=== PATIENT | female | born 1975 | race Caucasian/White ===

== ENCOUNTER 2018-04-12 06:03 | Day surgery (SDC) | payer OTHER ==
[2018-04-08 17:02] VITALS: BMI 28.3
[2018-04-12] MEDS ORDERED: CEFAZOLIN 2 GM in DEXTROSE 5%-WATER - 100 ML IVPB ONE (07:30)
[2018-04-12] MEDS ORDERED: INDOCYANINE GREEN 25 MG/10 ML VIAL IVPUSH ONE (07:39)
[2018-04-12] MEDS ORDERED: LIDOCAINE HCL/PF 2% SDV 5ML VIAL ONE (08:01)
[2018-04-12] MEDS ORDERED: ROCURONIUM BROMIDE 50 MG/5 ML VIAL ONE (08:01)
[2018-04-12] MEDS ORDERED: fentaNYL CITRATE 250 MCG/5 ML VIAL ONE (08:01)
[2018-04-12] MEDS ORDERED: PROPOFOL 20 ML ONE ×2 (08:01)
[2018-04-12] MEDS ORDERED: ceFAZolin SODIUM 1 GM VIAL ONE ×3 (08:01→16:57)
[2018-04-12] MEDS ORDERED: MIDAZOLAM HCL 2 MG/2 ML SINGLE DOSE VIAL ONE (08:02)
--- NOTE | 2018-04-12 08:47 | HP ---
Admitting History and Physical - Admission Chief Complaint: Persistent abnormal Paps History of Present Illness: Pt with h/o breast ca, prior BSO. Persistent abnormal paps and HR HPV positive. H/o LEEP x 3. Unable to have satisfactory colposcopy. Most recent pap LSIL, HR HPV positive. Stenotic cervix on exam. History Source: Patient Limitations to Obtaining History: No Limitations - Past Medical History ...LMP: 02/11/18 ...LMP Comment: bilateral salpingectomy and the ovaries ...: No Heme/Onc: Yes: Cancer - Past Surgical History Past Surgical History: Yes: Oopherectomy - Smoking History Smoking history: Never smoked Aproximately how many cigarettes per day: 0 - Alcohol/Substance Use Hx Alcohol Use: No (social) Home Medications - Allergies Allergies/Adverse Reactions: Allergies Allergy/AdvReac Type Severity Reaction Status Date / Time aspirin Allergy Intermediate abdominal Verified 07/10/13 10:28 bloating penicillin G Allergy Intermediate abdominal Verified 07/10/13 10:28 bloating lactose intolerant Allergy Mild abdominal Uncoded 07/10/13 10:28 bloating - Home Medications Home Medications: Ambulatory Orders Multivitamin/Iron/Folic Acid [Centrum Complete Multivit Tab] 1 each PO DAILY 03/13 Estradiol/Levonorgestrel [Climara Pro Patch] 1 each TD WEEKLY 04/08/18 Review of Systems - Review of Systems Constitutional: denies: No Symptoms, Chills, Diaphoresis, Fever, Lethargy, Loss of Appetite, Malaise, Night Sweats, Unintentional Wgt. Loss, Weakness, Other Eyes: denies: No Symptoms, Blind Spots, Blurred Vision, Double Vision, Eye Pain , Floaters, Photophobia, Recent Change in Vision, Other HENT: denies: No Symptoms, Difficult Swallowing, Ear Discharge, Ear Pain, Epistaxis, Gingival Bleeding, Hearing Loss, Mouth Swelling, Nasal Congestion, Ocular Prosthesis, Throat Pain, Toothache, Ringing in Ears, Other Neck: denies: No Symptoms, Decreased ROM, Lumps, Pain on Movement, Stiffness, Swollen Glands, Tenderness, Other Cardiovascular: denies: No Symptoms, Chest Pain, Edema, Palpitations, Shortness of Breath, Other Respiratory: denies: No Symptoms, Cough, Exercise Intolerance, Hemoptysis, Orthopnea, PND, Snoring, SOB, SOB on Exertion, Wheezing, Other Gastrointestinal: denies: No Symptoms, Abdominal Pain, Bloating, Constipation, Diarrhea, Dysphagia, Indigestion, Melena, Nausea, Rectal Bleeding, Vomiting, Vomiting Blood, Other Physical Examination Vital Signs: Vital Signs Temperature 98.1 F 04/12/18 06:34 Pulse Rate 74 04/12/18 06:34 Respiratory Rate 18 04/12/18 06:34 Blood Pressure 131/78 04/12/18 06:34 O2 Sat by Pulse Oximetry (%) 100 04/12/18 06:36 Constitutional: No: Well Nourished, No Distress, Calm, Anxious, Ashen, Cachectic , Diaphoresis, Mild Distress, Moderate Distress, Severe Distress, Obese, Pallor , Poor Hygeine, Thin, Other Eyes: No: WNL, Conjunctiva Clear, EOM Intact, Cataracts, Diplopia, Occular Prosthesis, PERRL, Ptosis, Sclera Icterus, Tearing, Other HENT: No: WNL, Atraumatic, Normocephalic, Drooling, Epistaxis, Hoarseness, Nasal Congestion, Pharyngeal Erythema, Rhinnorhea, Thrush, Tonsillar Exudate, Other Neck: No: WNL, Supple, Trachea Midline, Decreased ROM, Lymphadenopathy, Rigid, Tenderness, Thyromegaly, Other Cardiovascular: No: WNL, Regular Rate and Rhythm, Bradycardia, Tachycardia, Pulse Irregular, Bruit, JVD, Gallop, Murmur, Rub, S1, S2, S3, S4, Varicosities, Other Respiratory: No: WNL, Regular, CTA Bilaterally, Accessory Muscle Use, Bradypnea , David-Basurto, Cough, Diminished, Dullness, Hyperresonant, Intubated, Kussmaul , Mechanically Ventilated, On BiPap, On Nasal O2, On Venti-Mask, Orthopnea, Poor Air Entry, Rales, Rhonchi, SOB, SOB on Exertion, Stridor, Tachypnea, Wheezes, Other Gastrointestinal: No: WNL, Normal Bowel Sounds, Soft, Abdomen, Obese, Ascites, Distention, Hematemesis, Hemorrhoids, Hepatomegaly, Hernia, Hyperactive Bowel Sounds, Hypoactive Bowel Sounds, Melena, Palpable Mass, Pulsatile Mass, Rectal Bleeding, Splenomegaly, Tenderness, Tenderness, Epigastrium, Tenderness, Rebound , Vomiting, Other Problem List - Problems (1) LGSIL (low grade squamous intraepithelial dysplasia) Code(s): KEH6112 - (2) BRCA gene mutation positive in female Code(s): Z15.01 - GENETIC SUSCEPTIBILITY TO MALIGNANT NEOPLASM OF BREAST; Z15.02 - GENETIC SUSCEPTIBILITY TO MALIGNANT NEOPLASM OF OVARY; Z15.09 - GENETIC SUSCEPTIBILITY TO OTHER MALIGNANT NEOPLASM Assessment/Plan 42 yo with h/o BRCA mutation, multiple abnormal paps, prior LEEP x 3, unable to perform satisfactory colposcopy. Plan for robotic hysterectomy, prior h/o BSO. R /B/I/A discussed with pt. All questions answered.
[2018-04-12] MEDS ORDERED: ceFAZolin 2 GRAM PREMIX BAG IVPB ONE ×2 (08:58→09:03)
[2018-04-12] MEDS ORDERED: DEXAMETHASONE SOD PHOSPHATE 4 MG/1 ML VIAL ONE (09:01)
[2018-04-12] MEDS ORDERED: LIDOCAINE 1%/EPI 1:100000 (20 ML MULTI DOSE VIAL) IJ ONE (09:12)
[2018-04-12] MEDS ORDERED: NEOSTIGMINE METHYLSULFATE 0.5 MG/ML - 10 ML MDV ONE (09:17)
[2018-04-12] MEDS ORDERED: PROMETHAZINE HCL 25 MG/1 ML VIAL IVPUSH PRN (10:40)
[2018-04-12] MEDS ORDERED: IBUPROFEN 800 MG/8 ML IJ IVPB PRN (10:40)
[2018-04-12] MEDS ORDERED: ONDANSETRON 4 MG/2 ML VIAL IVPUSH PRN (10:40)
[2018-04-12] MEDS ORDERED: ACETAMINOPHEN 1000 MG/100 ML VIAL (NON FORMULARY) IVPB ONE (10:42)
--- NOTE | 2018-04-12 10:43 | SURG ---
Surgery Fax Machine Repairer Note Fax Machine Repairer: Manolo Ponce PA-C Date of Service: 04/12/18 Diagnosis: Abnormal paps (h/o BSO) Procedure: Robotic hysterectomy I was present for the entirety of the operative procedure. For further detail, please refer to operative report. Visit type - Case Type Case Type: Scheduled - New patient This patient is new to me today: Yes Date on this admission: 04/12/18
--- NOTE | 2018-04-12 10:43 | OP ---
Operative Note - Note: Operative Date: 04/12/18 Pre-Operative Diagnosis: Abnormal paps (h/o BSO) Operation: Robotic assisted hysterectomy Post-Operative Diagnosis: Same as Pre-op Surgeon: Emma Martinez Tennis Player: Manolo Ponce Anesthesiologist/CHORE TENDER: Darby Johnston Anesthesia: General Specimens Removed: Uterus Estimated Blood Loss (mls): 20 Drains, Volume Out (mls): 75 Fluid Volume Replaced (mls): 1,000 Operative Report Dictated: Yes
--- NOTE | 2018-04-12 10:43 | OP ---
Operative Note - Note: Operative Date: 04/12/18 Pre-Operative Diagnosis: Persistent abnormal pap smears,. CORNELL 1. BRCA mutation Operation: Robotic hysterectomy, Lysis of adhesions Findings: Cervix flush, stenotic, no gross lesions. Intraabdominal findings-- 8 week globular uterus, surgically absent ovaries and tubes. Densely adherent to anterior abdominal wall. Implants: none Post-Operative Diagnosis: Same as Pre-op Anesthesia: General, Local Specimens Removed: uterus, cervix Estimated Blood Loss (mls): 50 Drains & Tubes with Location: none Blood Volume Replaced (mls): 0 Fluid Volume Replaced (mls): 0 Operative Report Dictated: Yes
[2018-04-12] MEDS ORDERED: ESTRADIOL TD SCH (10:45)
[2018-04-12] MEDS ORDERED: [UNRECOGNIZED DRUG - OTHER] TD SCH (10:45)
--- NOTE | 2018-04-12 10:58 | OP ---
DATE OF OPERATION: 04/12/2018 PREOPERATIVE DIAGNOSIS: Persistent dysplasia, cervical intraepithelial neoplasia I, a history of loop electrocautery excision procedure x2, and breast cancer gene mutation. POSTOPERATIVE DIAGNOSIS: Persistent dysplasia, cervical intraepithelial neoplasia I, a history of loop electrocautery excision procedure x2, and breast cancer gene mutation. PROCEDURE: Robotic-assisted total hysterectomy, lysis of adhesions. SURGEON: Emma Martinez MD NUTRITION TECH: BEN Dill ANESTHESIA: General endotracheal and local. ESTIMATED BLOOD LOSS: 50 mL. COMPLICATIONS: None. INDICATIONS: This is a 42-year-old with a history of BRCA mutation and previous bilateral salpingo-oophorectomy. She had a history of persistent abnormal Pap smears and LEEP x3. Most recent Pap smear was low-grade squamous intraepithelial lesion, high-risk HPV positive. She had a colposcopy, which was unsatisfactory due to difficulty visualizing the transformation zone. She had prior section x2 and a very anterior cervix. Given the difficulty in evaluating her cervix for abnormal Pap smear, we had discussed robotic hysterectomy in addition to the increased risk of uterine papillary BRCA I mutation. The patient was counseled regarding surgical management, risks, benefits, indications, and alternatives were discussed with the patient. All questions were answered. Informed consent was signed. FINDINGS: The vagina was atrophic. Cervix unable to be visualized with speculum. A small nubbin was palpable, approximately 1 cm of tissue in the vagina. Intraoperative findings, normal liver edge, normal appendix, normal diaphragm, uterus approximately 8 weeks' size and globular. Extensive dense adhesions of the uterus to the anterior abdominal wall. Bilateral tubes and ovaries surgically absent. Normal appendix. No evidence of disease in the pelvis or cul-de-sac. DESCRIPTION OF PROCEDURE: The patient was taken to the operating room, placed in the dorsal supine position. General endotracheal anesthesia was obtained without difficulty. She was placed in the dorsal lithotomy position in Khadar stirrups and prepped and draped in the normal sterile fashion. A Ragland catheter was placed in the bladder. A speculum was placed in the vagina. We could not visualize the cervix. A sponge stick was, therefore, placed in the vagina to manipulate the uterus. Attention was turned to the patient's abdomen. Then 5 mL of 1% lidocaine with epinephrine was injected into the umbilicus, and an 8-mm incision was made with a scalpel. While tenting the anterior abdominal wall, the Veress needle was inserted intra-abdominally. The abdomen was insufflated with CO2 gas, and an 8-mm trocar was placed. An additional 8-mm trocar was placed in the right mid quadrant and the left mid quadrant, and a 5-mm AirSeal port was placed in the right lower quadrant. All trocars were placed under direct visualization after injecting 1% lidocaine with epinephrine. A thorough exam of the abdomen and pelvis revealed the above-noted findings. The Da Jeremias robot was then docked without difficulty. The right cornua was elevated. The right ureter was noted to be well away from the field of dissection. The right round ligament was clamped, cauterized, and transected. The broad ligament was clamped, cauterized, and transected on the left. The left round ligament was clamped, cauterized, and transected. This was carried through the broad ligament and the vesicouterine peritoneum anteriorly. The uterus was dissected off the anterior abdominal wall. The omentum had been dissected also off the anterior abdominal wall in the midline. Great care was taken dissecting the uterus off the anterior abdominal wall to avoid injury to the bladder. The vesicouterine peritoneum was opened, and the bladder was dissected off the anterior cervix and upper vagina. The uterine arteries bilaterally were skeletonized. They were clamped, cauterized, and transected. The cardinal ligaments were clamped, cauterized, and transected. Uterosacral ligaments were clamped, cauterized, and transected. A vaginotomy incision was made circumferentially around the cervix. Uterus and cervix were passed through the vagina, and the vaginal cuff was closed in a running, continuous fashion using 2-0 V-Lock suture. The pelvis was thoroughly irrigated and noted to be hemostatic. All instruments were removed. The Da Jeremias robot was then undocked. The trocars were removed. Skin was closed with 4-0 Monocryl, and Dermabond was applied. The patient was extubated and transferred in stable condition to PACU. Lena [id number]
[2018-04-12] MEDS ORDERED: KETOROLAC TROMETHAMINE 30 MG/1 ML VIAL ONE (13:58)
[2018-04-12] MEDS: KETOROLAC TROMETHAMINE 30 MG/1 ML VIAL IVPB SCH ×2 (14:00→20:10)
[2018-04-12] MEDS: LACTATED RINGERS SOLUTION 1,000 ML IV SCH (14:10)
[2018-04-12] MEDS ORDERED: PROMETHAZINE HCL 25 MG/1 ML VIAL IVPB PRN (14:10)
[2018-04-12] MEDS ORDERED: MORPHINE SULFATE 2 MG/ML VIAL IVPUSH PRN (16:09)
[2018-04-12] MEDS ORDERED: DEXTROSE 5%-WATER - 50 ML IVPB ONE (16:58)
[2018-04-12] MEDS: CEFAZOLIN 1 GM in DEXTROSE 5%-WATER - 50 ML IVPB SCH (17:26)
[2018-04-12] MEDS: ACETAMINOPHEN 325 MG TABLET (FP) PO SCH (19:13)
[2018-04-13] MEDS: ACETAMINOPHEN 325 MG TABLET (FP) PO SCH ×2 (00:21→05:39)
[2018-04-13] MEDS ORDERED: ceFAZolin SODIUM 1 GM VIAL ONE ×2 (01:23→09:11)
[2018-04-13] MEDS ORDERED: DEXTROSE 5%-WATER - 50 ML IVPB ONE ×2 (01:24→09:11)
[2018-04-13] MEDS: CEFAZOLIN 1 GM in DEXTROSE 5%-WATER - 50 ML IVPB SCH ×2 (01:34→09:14)
[2018-04-13] MEDS: LACTATED RINGERS SOLUTION 1,000 ML IV SCH ×2 (01:38→11:02)
[2018-04-13] MEDS: KETOROLAC TROMETHAMINE 30 MG/1 ML VIAL IVPB SCH ×2 (02:45→09:16)
[2018-04-13 07:56] LABS: HEMATOCRIT 34.7 % (32.4-45.2); HEMOGLOBIN 11.3 GM/dL (10.7-15.3); MCH 27.8 pg (25.7-33.7); MCHC 32.6 g/dl (32.0-36.0); MEAN CELL VOLUME 85.5 fl (80-96); MEAN PLT VOLUME 7.9 fl (7.5-11.1); PLATELET COUNT 330 K/MM3 (134-434); RBC 4.05 M/mm3 (3.60-5.2); WHITE BLOOD COUNT 10.7 K/mm3 (4.0-10.0)
[2018-04-13 08:33] LABS: ANION GAP 4 MMOL/L (8-16); BLOOD UREA NITROGEN 14 mg/dL (7-18); CALCIUM 8.4 mg/dL (8.5-10.1); CHLORIDE 106 mmol/L (98-107); CO2 30 mmol/L (21-32); CREATININE 0.6 mg/dL (0.55-1.3); GLUCOSE,RANDOM 90 mg/dL (74-106); POTASSIUM 4.5 mmol/L (3.5-5.1); SODIUM 139 mmol/L (136-145)
[2018-04-13 09:09] VITALS: BP 115/72; PULSE 64; TEMP 98.2
--- NOTE | 2018-04-13 09:29 | PN ---
Progress Note (short form) - Note Progress Note: surgery POD #1 Robotic assisted hysterectomy patient seen and examined at bedside with no complaints. Patient states pain is controlled and she is voiding without limitation and passing gas. She is tolerating her clear diet and denies any C, sob, n/v, Dizizness, fevers or chills. Vital Signs Temp 98.2 F 04/13/18 09:08 Pulse 64 04/13/18 09:08 Resp 18 04/13/18 09:08 BP 115/72 04/13/18 09:08 Pulse Ox 100 04/12/18 14:21 Intake & Output 04/12/18 04/12/18 04/13/18 11:59 23:59 11:59 Intake Total 950 200 Output Total 200 600 425 Balance 750 -400 -425 Weight 145 lb Intake: IV 950 200 Output: Urine 150 600 425 Ragland 425 Estimated Blood Loss 50 Other: Height 5 ft Body Mass Index (BMI) 28.3 Weight Measurement Method Estimated by Patient PE: A&Ox3, NAD Unlabored resp on RA ABD: soft, NT, ND, incisions c/d/i with dermabond no evidence of tracking erythema or collection. b/L LE compartments soft, supple and non-tender with +DP pulses. Problem List - Problems (1) History of robot-assisted laparoscopic hysterectomy Assessment/Plan: POD #1 Robotic assisted hysterectomy, doing well 1) Advance diet 2) OOB as tolerated , encourage ambulation 3) Daily IS 4) Pain control 5) d/c for home today 6) F/u with Dr Martinez as scheduled Evaluation and plan discussed with Dr Martinez Code(s): Z90.710 - ACQUIRED ABSENCE OF BOTH CERVIX AND UTERUS (2) S/P robot-assisted surgical procedure Code(s): Z98.890 - OTHER SPECIFIED POSTPROCEDURAL STATES
[2018-04-13] MEDS ORDERED: MULTIVITAMINS (DAILY MVI) TABLET (FP) PO SCH (10:00)
[2018-04-13] MEDS ORDERED: ENOXAPARIN NA (PORCINE) 30 MG/0.3 ML DISP.SYRIN SQ SCH (10:00)
--- NOTE | 2018-04-15 18:04 | PATH ---
Surgical Pathology Report Patient Name: KWADWO ELLIOTT [facility]. Rec. #: [id number] /Age/Gender: 1975 (Age: 42) / F Account: [id number] Location: AMBULATORY SURG Taken: 04/12/2018 Received: 04/12/2018 Reported: 04/15/2018 Physicians: Emma Martinez MD Specimen(s) Received UTERUS AND CERVIX Clinical History Low grade squamous intraepithelial lesion Final Diagnosis CERVIX AND UTERUS, HYSTERECTOMY: CERVIX WITH FOCAL CORNELL 1 (CERVICAL INTRAEPITHELIAL NEOPLASIA GRADE 1). MARGIN IS NEGATIVE FOR DYSPLASIA. MILD CHRONIC INFLAMMATION AND SQUAMOUS METAPLASIA ARE ALSO PRESENT. WEAKLY PROLIFERATIVE ENDOMETRIUM. Electronically Signed Vishal Sorenson M.D. Gross Description Received in formalin labeled "cervix and uterus," is a 102 g uterus with an attached cervix and no attached adnexa. The specimen measures 8.5 cm from superior to inferior, 4.5 cm from left to right and 4.2 cm from one anterior to posterior. The serosa is becerra fuentes and smooth. The attached cervix measures 3.5 cm in length and averages 3 cm in diameter. The ectocervix is becerra, smooth and glistening. The endocervix is unremarkable. The endometrial cavity measures 3.5 cm in length and 1.5 cm from cornu to cornu. The endometrium is becerra red and averages less than 0.1 cm in thickness. The myometrium is becerra-pink and averages 2 cm in thickness. No intramural nodules are identified. Package Car Driver sections are submitted in 16 cassettes as follows: 1-1:00 cervix; 2-2:00 cervix; 3-3:00 cervix; 4-4:00 cervix; 5-5:00 cervix; 6-6:00 cervix; 7-7:00 cervix; 8-8:00 cervix; 9-9:00 cervix; 10-10:00 cervix; 11-11:00 cervix; 12-12:00 cervix; 20-72-[id number] endomyometrium; 73-32-[id number] endomyometrium. 04/13/201804/13/2018
== END 2018-04-13 13:02 | disposition home or self-care (01) ==
LOC: JASUSAT 06:03 → EDSTATUS 08:00 → J8W 14:25 → JASUSAT 04-13 13:02
PROVIDERS: ATTEND Obstetrics & Gynecology Gynecologic Oncology
PROC: 8E0W4CZ Robotic Assisted Procedure of Trunk Region, Percutaneous Endoscopic Approach (ICD-10-PCS; 2018-04-12)
PROC: 0UT9FZZ Resection of Uterus, Via Natural or Artificial Opening With Percutaneous Endoscopic Assistance (ICD-10-PCS; principal; 2018-04-12 08:00)
DX: N87.0 Mild cervical dysplasia (principal); Z15.01 Genetic susceptibility to malignant neoplasm of breast; Z85.3 Personal history of malignant neoplasm of breast
CPT/HCPCS: 58550; S2900; 36415; 80048; 84703; 85027; 86850; 86900; 86901; 88307-TC; 94010; 94760; J0131

== ENCOUNTER 2021-12-25 15:35 | Emergency (ER) | payer OTHER ==
[2021-12-25 15:53] VITALS: BP 116/78; PULSE 83; RESP 18; TEMP 98.2; BMI 29.2
[2021-12-25] MEDS ORDERED: SODIUM CHLORIDE 1,000 ML IV STA (16:37)
[2021-12-25] MEDS ORDERED: ACETAMINOPHEN 1000 MG/100 ML BAG IVPB ONE (16:37)
[2021-12-25] MEDS ORDERED: ACETAMINOPHEN INJECTION 100 ML IVPB ONE (18:10)
[2021-12-25 18:55] LABS: BASO % 0.4 % (0-2.0); EOS % 1.4 % (0-4.5); HEMATOCRIT 41.4 % (32.4-45.2); HEMOGLOBIN 13.9 GM/dL (10.7-15.3); LYMPH % 43.1 % (8-40); MCH 28.5 pg (25.7-33.7); MCHC 33.5 g/dl (32.0-36.0); MEAN CELL VOLUME 85.1 fl (80-96); MEAN PLT VOLUME 7.4 fl (7.5-11.1); MONO % 7.3 % (3.8-10.2); NEUT % 47.8 % (42.8-82.8); PLATELET COUNT 396 10^3/uL (134-434); RBC 4.87 M/mm3 (3.60-5.2); RDW 13.7 % (11.6-15.6); WHITE BLOOD COUNT 8.7 K/mm3 (4.0-10.0)
[2021-12-25 18:59] LABS: EPI CELLS 6 /uL (0-25.1); HYALINE CASTS 0 /uL (0-3.1); URINE APPEARANCE CLEAR; URINE BACTERIA 296 /uL (0-1359); URINE BILIRUBIN NEGATIVE (NEGATIVE); URINE COLOR YELLOW; URINE GLUCOSE (UA) NEGATIVE (NEGATIVE); URINE KETONE NEGATIVE (NEGATIVE); URINE LEUK ESTERASE NEGATIVE (NEGATIVE); URINE NITRITE NEGATIVE (NEGATIVE); URINE PROTEIN NEGATIVE (NEGATIVE); URINE RBC 43 /uL (0-23.9); URINE UROBILINOGEN 0.2 mg/dL (0.2-1.0); URINE WBC 2 /uL (0-25.8)
[2021-12-25 19:00] LABS: HCG,QUALITATIVE URINE Negative
[2021-12-25 19:30] LABS: CALCIUM 9.4 mg/dL (8.5-10.1)
[2021-12-25 19:31] LABS: ALBUMIN 4.2 g/dl (3.4-5.0); BLOOD UREA NITROGEN 12.9 mg/dL (7-18)
[2021-12-25 19:34] LABS: CREATININE 0.5 mg/dL (0.55-1.3)
[2021-12-25 19:35] LABS: BILIRUBIN,TOTAL 0.6 mg/dL (0.2-1); TOT PROT 7.4 g/dl (6.4-8.2)
== END 2021-12-25 19:57 | disposition home or self-care (01) ==
LOC: JER 15:35
PROC: 3E033GC Introduction of Other Therapeutic Substance into Peripheral Vein, Percutaneous Approach (ICD-10-PCS; principal; 2021-12-25)
DX: N20.0 Calculus of kidney (principal)
CPT/HCPCS: 36415; 74176-TC; 80053; 81003; 84703; 85025; 87086; 99285-25

== ENCOUNTER 2022-01-05 04:12 | Day surgery (SDC) | payer OTHER ==
[2022-01-01 11:44] VITALS: BMI 29.2
[2022-01-05] MEDS ORDERED: LIDOCAINE HCL/PF 2% SDV 5ML VIAL ONE (09:02)
[2022-01-05] MEDS ORDERED: PROPOFOL 20 ML ONE (09:02)
[2022-01-05] MEDS ORDERED: MIDAZOLAM HCL 2 MG/2 ML SINGLE DOSE VIAL ONE (09:03)
[2022-01-05] MEDS ORDERED: ONDANSETRON 4 MG/2 ML VIAL ONE (11:12)
[2022-01-05] MEDS ORDERED: ONDANSETRON 4 MG/2 ML VIAL IVPUSH ONE (11:14)
[2022-01-05] MEDS ORDERED: ONDANSETRON 4 MG/2 ML VIAL IVPUSH PRN (11:24)
[2022-01-05] MEDS ORDERED: oxyCODONE HCL 5 MG TABLET PO PRN ×2 (11:24)
[2022-01-05] MEDS ORDERED: LACTATED RINGERS SOLUTION 1,000 ML IV SCH (11:30)
[2022-01-05 11:59] VITALS: RESP 18
[2022-01-05 14:03] VITALS: BP 130/82; PULSE 64; TEMP 97.7
== END 2022-01-05 14:00 | disposition home or self-care (01) ==
LOC: JASU-SURG 04:12
PROVIDERS: ATTEND Urology
PROC: BT1DYZZ Fluoroscopy of Right Kidney, Ureter and Bladder using Other Contrast (ICD-10-PCS; principal; 2022-01-05 11:30)
DX: N13.30 Unspecified hydronephrosis (principal)
CPT/HCPCS: 76000-TC-FY; 94760

== ENCOUNTER 2023-06-07 04:38 | Day surgery (SDC) | payer OTHER ==
[2023-06-01 15:37] VITALS: BMI 29.2
[2023-06-07 14:21] VITALS: RESP 18
[2023-06-07] MEDS ORDERED: MIDAZOLAM HCL 2 MG/2 ML SINGLE DOSE VIAL ONE (16:57)
[2023-06-07 18:25] VITALS: BP 126/80; PULSE 80; TEMP 97.4
== END 2023-06-07 18:30 | disposition home or self-care (01) ==
LOC: JASU-SURG 04:38
PROVIDERS: ATTEND Urology
PROC: 0TF3XZZ Fragmentation in Right Kidney Pelvis, External Approach (ICD-10-PCS; principal; 2023-06-07 16:00)
DX: N20.0 Calculus of kidney (principal)

== ENCOUNTER 2024-02-01 07:31 | Observation (INO) | payer OTHER ==
[2024-02-01 07:45] VITALS: RESP 18
[2024-02-01 08:39] LABS: PH,URINE 5.5 (5.0-8.0); URINE APPEARANCE CLEAR; URINE BILIRUBIN NEGATIVE (NEGATIVE); URINE COLOR YELLOW; URINE GLUCOSE (UA) NEGATIVE (NEGATIVE); URINE KETONE NEGATIVE (NEGATIVE); URINE LEUK ESTERASE NEGATIVE (NEGATIVE); URINE NITRITE NEGATIVE (NEGATIVE); URINE PROTEIN NEGATIVE (NEGATIVE); URINE UROBILINOGEN 0.2 mg/dL (0.2-1.0)
[2024-02-01] MEDS ORDERED: ONDANSETRON 4 MG/2 ML VIAL ONE (08:47)
[2024-02-01] MEDS ORDERED: ACETAMINOPHEN INJECTION 100 ML ONE (08:47)
[2024-02-01] MEDS: LACTATED RINGERS SOLUTION 1,000 ML/1,000 ML INFUS.BAG IV SCH (08:56)
[2024-02-01] MEDS: ACETAMINOPHEN 1000 MG/100 ML BAG IVPB ONE (08:56)
[2024-02-01] MEDS: ONDANSETRON 4 MG/2 ML VIAL IVPUSH ONE (08:57)
[2024-02-01 09:01] LABS: BASO % 0.9 % (0-2.0); EOS % 1.6 % (0-4.5); HEMATOCRIT 40.2 % (32.4-45.2); HEMOGLOBIN 13.6 GM/dL (10.7-15.3); LYMPH % 26.4 % (8-40); MCH 29.3 pg (25.7-33.7); MCHC 33.8 g/dl (32.0-36.0); MEAN CELL VOLUME 86.6 fl (80-96); MEAN PLT VOLUME 7.3 fl (7.5-11.1); MONO % 9.5 % (3.8-10.2); NEUT % 61.6 % (42.8-82.8); PLATELET COUNT 360 10^3/uL (134-434); RBC 4.63 M/mm3 (3.60-5.2); RDW 13.9 % (11.6-15.6); WHITE BLOOD COUNT 9.5 K/mm3 (4.0-10.0)
[2024-02-01 09:11] LABS: INR 0.9 (0.83-1.09); PROTHROMBIN TIME (PATIENT) 10.2 SEC (9.7-13.0)
[2024-02-01 09:13] LABS: ACTIVATED PTT 30.6 SECONDS (25.2-36.5)
[2024-02-01 09:37] LABS: POTASSIUM 3.9 mmol/L (3.5-5.1)
[2024-02-01 09:41] LABS: BLOOD UREA NITROGEN 11.2 mg/dL (7-18); CALCIUM 9.3 mg/dL (8.5-10.1)
[2024-02-01 09:44] LABS: CREATININE 0.7 mg/dL (0.55-1.3)
[2024-02-01 09:46] LABS: BILIRUBIN,TOTAL 0.7 mg/dL (0.2-1); TOT PROT 7.4 g/dl (6.4-8.2)
[2024-02-01] MEDS ORDERED: MORPHINE SULFATE 2 MG/ML SYRINGE ONE (11:02)
[2024-02-01] MEDS: morphine CARPU-JECT 2 MG/1 ML DISP.SYRIN IVPUSH ONE (11:04)
[2024-02-01] MEDS ORDERED: ACETAMINOPHEN 325 MG TABLET (FP) PO PRN (11:26)
[2024-02-01] MEDS: CEFTRIAXONE 1,000 MG in DEXTROSE 5%-WATER - 50 ML IVPB ONE (11:29)
[2024-02-01] MEDS ORDERED: PANTOPRAZOLE 20 MG TABLET PO ONE (11:30)
[2024-02-01] MEDS ORDERED: CEFTRIAXONE 1 GM/50 ML BAG ONE (11:30)
[2024-02-01] MEDS: PANTOPRAZOLE 20 MG TABLET PO SCH (11:31)
[2024-02-01 12:09] VITALS: BMI 29.8
[2024-02-01 14:39] LABS: HIV INTERPRETATION NEGATIVE (NEGATIVE)
[2024-02-02 09:59] LABS: BASO % 0.6 % (0-2.0); EOS % 2.2 % (0-4.5); HEMATOCRIT 39.3 % (32.4-45.2); HEMOGLOBIN 13.3 GM/dL (10.7-15.3); LYMPH % 31.1 % (8-40); MCH 29.1 pg (25.7-33.7); MCHC 33.7 g/dl (32.0-36.0); MEAN CELL VOLUME 86.3 fl (80-96); MEAN PLT VOLUME 7.3 fl (7.5-11.1); MONO % 6.9 % (3.8-10.2); NEUT % 59.2 % (42.8-82.8); PLATELET COUNT 358 10^3/uL (134-434); RBC 4.56 M/mm3 (3.60-5.2); RDW 14.1 % (11.6-15.6); WHITE BLOOD COUNT 8.4 K/mm3 (4.0-10.0)
[2024-02-02 10:08] LABS: POTASSIUM 3.8 mmol/L (3.5-5.1)
[2024-02-02 10:13] LABS: CALCIUM 9.1 mg/dL (8.5-10.1)
[2024-02-02 10:14] LABS: BLOOD UREA NITROGEN 7.1 mg/dL (7-18)
[2024-02-02 10:17] LABS: CREATININE 0.7 mg/dL (0.55-1.3); MAGNESIUM 2.2 mg/dL (1.8-2.4)
[2024-02-02 10:18] LABS: PHOSPHOROUS 2.6 mg/dL (2.5-4.9)
[2024-02-02] MEDS: CEFTRIAXONE 1 GM in DEXTROSE 5%-WATER - 50 ML IVPB SCH (10:33)
[2024-02-02] MEDS: ENOXAPARIN NA (PORCINE) 40 MG/0.4 ML DISP.SYRIN SQ SCH (10:33)
[2024-02-02] MEDS: LACTATED RINGERS SOLUTION 1,000 ML/1,000 ML INFUS.BAG IV SCH (17:20)
[2024-02-03 07:28] LABS: BASO % 0.8 % (0-2.0); EOS % 4.1 % (0-4.5); HEMATOCRIT 37.5 % (32.4-45.2); HEMOGLOBIN 12.4 GM/dL (10.7-15.3); LYMPH % 36.5 % (8-40); MCH 28.8 pg (25.7-33.7); MCHC 33.1 g/dl (32.0-36.0); MEAN CELL VOLUME 87.3 fl (80-96); MEAN PLT VOLUME 7.3 fl (7.5-11.1); MONO % 9.8 % (3.8-10.2); NEUT % 48.8 % (42.8-82.8); PLATELET COUNT 346 10^3/uL (134-434); RBC 4.29 M/mm3 (3.60-5.2); RDW 13.5 % (11.6-15.6); WHITE BLOOD COUNT 6.6 K/mm3 (4.0-10.0)
[2024-02-03 07:46] LABS: POTASSIUM 4.2 mmol/L (3.5-5.1)
[2024-02-03 07:48] LABS: CALCIUM 8.8 mg/dL (8.5-10.1)
[2024-02-03 07:49] LABS: BLOOD UREA NITROGEN 6.4 mg/dL (7-18)
[2024-02-03 07:52] LABS: CREATININE 0.6 mg/dL (0.55-1.3)
[2024-02-03 08:47] VITALS: BP 132/97; PULSE 64; TEMP 97.5
== END 2024-02-03 13:33 | disposition home or self-care (01) ==
LOC: JER 07:31 → JERBED 11:02 → J7W 11:50
PROVIDERS: ADMIT Internal Medicine; ATTEND Nurse Practitioner
PROC: 3E03329 Introduction of Other Anti-infective into Peripheral Vein, Percutaneous Approach (ICD-10-PCS; principal; 2024-02-01)
PROC: 3E023GC Introduction of Other Therapeutic Substance into Muscle, Percutaneous Approach (ICD-10-PCS; 2024-02-01)
PROC: 3E0337Z Introduction of Electrolytic and Water Balance Substance into Peripheral Vein, Percutaneous Approach (ICD-10-PCS; 2024-02-01)
PROC: 3E033NZ Introduction of Analgesics, Hypnotics, Sedatives into Peripheral Vein, Percutaneous Approach (ICD-10-PCS; 2024-02-01)
DX: K57.92 Diverticulitis of intestine, part unspecified, without perforation or abscess without bleeding (principal); R73.03 Prediabetes; N20.0 Calculus of kidney; Z90.79 Acquired absence of other genital organ(s); Z90.13 Acquired absence of bilateral breasts and nipples
CPT/HCPCS: 36415; 74177-TC; 80048; 80053; 81003; 83605; 83690; 83735; 84100; 85025; 85610; 85730; 86140; 86803; 86850; 86900; 86901; 87045; 87046; 87086; 87209; 87389; 93005; 93010; 99285-25; G0378; J0131; Q9967

== ENCOUNTER 2024-05-11 19:22 | Emergency (ER) | payer OTHER ==
[2024-05-11 19:33] VITALS: BP 151/97; PULSE 76; RESP 18; TEMP 98.1; BMI 27.3
[2024-05-11] MEDS ORDERED: CYCLOBENZAPRINE HCL 5 MG TABLET ONE (20:20)
[2024-05-11] MEDS ORDERED: KETOROLAC TROMETHAMINE 30 MG/1 ML VIAL ONE (20:20)
[2024-05-11] MEDS: KETOROLAC TROMETHAMINE 30 MG/1 ML VIAL IM ONE (20:27)
[2024-05-11] MEDS: CYCLOBENZAPRINE HCL 10 MG TABLET (FP) PO ONE (20:27)
== END 2024-05-11 20:31 | disposition home or self-care (01) ==
LOC: JERFT 19:22
PROC: 3E023GC Introduction of Other Therapeutic Substance into Muscle, Percutaneous Approach (ICD-10-PCS; principal; 2024-05-11)
DX: M54.50 Low back pain, unspecified (principal); V79.49XA Driver of bus injured in collision with other motor vehicles in traffic accident, initial encounter
CPT/HCPCS: 99284-25